=== PATIENT | female | born 1990 | race African-American/Black ===

== ENCOUNTER 2018-06-11 20:13 | Emergency (ER) | payer OTHER ==
[~2018-06-11] VITALS: Ht 170.2 cm; Wt 97.5 kg
--- NOTE | 2018-06-11 20:55 | NUR ---
ED Nurse Note: Patient fell down stairs at work and twisted right ankle. pulse, sensation, cap refill noted. pt is able to move toes. fall precaustions in effect. pt is alert and oriented times 4. no head trauma noted.
--- NOTE | 2018-06-11 21:55 | Emergency Room Report ---
History of Present Illness General Chief Complaint: Lower Extremity Injury Source: Patient Present Illness HPI Patient fell down 2 stairs and hit her right ankle when she fell. There was no pop. She's not been ambulating. They splinted it and at work. She declined any medication at that time. She's never injured the ankle before. Not able to ambulate or weight bare. No numbness. No bruising. No other somatic complaints. No knee pain. LNMP 8 and normal for her. Allergies: Coded Allergies: No Known Allergies (Unverified , 06/11/18) Patient History Past Medical History: see triage record Social History: Denies: smoking Social History Narrative [employer] Last Menstrual Period: 05/27/18 Now: No : 0 Reviewed Nursing Documentation: PMH: Agreed; PSxH: Agreed Nursing Documentation-PMH Past Medical History: No Stated History Review of Systems Constitutional: Denies: fever Genitourinary: Reports: see HPI Musculoskeletal: Reports: see HPI Skin: Reports: see HPI Neurological: Reports: see HPI Hematologic/Lymphatic: Denies: easy bleeding Physical Exam Vital Signs Date Time Temp Pulse Resp B/P (MAP) Pulse Ox O2 Delivery O2 Flow Rate FiO2 06/11/18 20:40 98.1 75 16 140/88 97 Room Air Sp02 EP Interpretation: reviewed, normal General Appearance: well appearing, no apparent distress, GCS 15 Head: normocephalic, atraumatic Eyes: bilateral eye normal inspection, bilateral eye PERRL ENT: hearing grossly normal, normal voice Neck: full range of motion, supple Respiratory: no respiratory distress, speaking full sentences Musculoskeletal: digits/nails normal, no calf tenderness, swelling - lateral ankle R with stable ligaments, no 5th metatarsal tenderness, knee not tender Neurologic: alert, normal gait Psychiatric: mood/affect normal Skin: no rash Medical Decision Making Diagnostic Impression: Primary Impression: Right ankle sprain Qualified Codes: S93.401A - Sprain of unspecified ligament of right ankle, initial encounter ER Course Patient presents with right ankle pain after fall down 2 steps. Differential includes sprain, contusion, fracture amongst others. Based on I will ankle rules x-rays are indicated. The patient is declining pain medication at the moment. X-rays without fracture. There is splint is applied by the utility locate technician. Position is excellent with improved function. Patient was provided with crutches. Neurovascular exam was normal after splint after splint application as checked by me. Patient is stable for outpatient observation and treatment. Treatment plan discussed with patient. Other X-Ray Diagnostic Results Other X-Ray Diagnostic Results : X-Ray ordered: R ankle # of Views/Limited Vs Complete: 3 View Indication: Pain EP Interpretation: Yes Interpretation: no dislocation, no soft tissue swelling, no fractures Impression: No acute disease Electronically Signed by: Electronically signed by Devin Berry MD Last Vital Signs Date Time Temp Pulse Resp B/P (MAP) Pulse Ox O2 Delivery O2 Flow Rate FiO2 06/11/18 22:25 98.0 62 16 138/85 97 Room Air Status: improved Disposition: HOME, SELF-CARE Condition: Improved Scripts Ibuprofen* (MOTRIN*) 600 Mg Tablet 600 MG ORAL Q6H PRN for For Pain, #20 TAB Prov: Devin Berry MD 06/11/18 Acetaminophen (Tylenol) 325 Mg Tablet 650 MG ORAL Q6H PRN for Prn Pain/Headache/Temp > 101, #20 TAB 0 Refills Prov: Devin Berry MD 06/11/18 Devin Berry MD Jun 11, 2018 21:55
[2018-06-11] MEDS ORDERED: IBUPROFEN600 MG ORAL (21:57)
[2018-06-11] MEDS ORDERED: TYLENOL325 MG ORAL (21:57)
[2018-06-11 22:24] VITALS: BP 138/85
[2018-06-11 22:25] VITALS: BP 138/85
--- NOTE | 2018-06-11 22:26 | NUR ---
ED Nurse Note: PT is medically cleared per ERMD order. pt is stable for transfer. pt status condition and vital signs are reported to ERMD prior to DC. pt vital signs are stable. pt is alert and oriented times 4. pt left with all belongings, including DC ntoes and prescriptions. pt was able to teach back and understands DC notes and prescription. pt is instructed to follow up with primary MD as soon as possible, pt is instructed to return to ER if any variance in condition. ID band removed. pt is able to ambulate. pt is alert and oriented times 4. pt is stable for DC as per ERMD orders.
--- NOTE | 2018-06-12 11:08 | Diagnostic Imaging Report ---
Indication: Pain, status post fall Technique: 3 views of the right ankle Comparison: none Findings: No acute fractures. No dislocations. The joint spaces are preserved Impression: Negative
== END 2018-06-11 22:27 | disposition home or self-care (01) ==
LOC: EMR 21:49
DX: S93.401A Sprain of unspecified ligament of right ankle, initial encounter (principal); W10.9XXA Fall (on) (from) unspecified stairs and steps, initial encounter; Y92.69 Other specified industrial and construction area as the place of occurrence of the external cause
CPT/HCPCS: 29515; 99283